=== PATIENT | female | born 1995 | race Caucasian/White ===

== ENCOUNTER 2017-08-28 17:51 | Emergency (ER) | payer MEDICAID ==
[~2017-08-28] VITALS: Ht 177.8 cm; Wt 61.2 kg
[2017-08-28 17:55] VITALS: Ht 177.8 cm; Wt 61.2 kg
[2017-08-28 21:10] VITALS: BP 110/69
== END 2017-08-28 21:10 | disposition home or self-care (01) ==
LOC: ED 17:51
DX: S32.19XA Other fracture of sacrum, initial encounter for closed fracture (principal); Z88.0 Allergy status to penicillin; V80.010A Animal-rider injured by fall from or being thrown from horse in noncollision accident, initial encounter; Y93.52 Activity, horseback riding; Y99.8 Other external cause status; Y92.89 Other specified places as the place of occurrence of the external cause
CPT/HCPCS: J2270